=== PATIENT | male | born 1965 | race Two or more races ===

== ENCOUNTER 2019-01-13 18:44 | Emergency (ER) | payer BC, OTHER ==
[~2019-01-13] VITALS: Ht 175.3 cm; Wt 113.4 kg
[2019-01-13 20:05] VITALS: BP 122/86
[2019-01-13] MEDS ORDERED: TETANUS-DIPTH-ACEL PERTUSSIS 0.5ML SYRG IM ONE (21:15)
[2019-01-13] MEDS ORDERED: cefTRIAXone SOD 1,000 MG VL IM ONE (21:15)
[2019-01-13] MEDS ORDERED: cefTRIAXone 1GM/50ML D5W 50 ML IV ONE (21:45)
== END 2019-01-13 22:14 | disposition home or self-care (01) ==
LOC: ER 18:44 → EDBD 18:44 → ER 22:14
DX: S61.227A Laceration with foreign body of left little finger without damage to nail, initial encounter (principal); S40.012A Contusion of left shoulder, initial encounter; S00.03XA Contusion of scalp, initial encounter; Z90.49 Acquired absence of other specified parts of digestive tract; V43.52XA Car driver injured in collision with other type car in traffic accident, initial encounter; Y93.89 Activity, other specified; Y99.8 Other external cause status; Y92.410 Unspecified street and highway as the place of occurrence of the external cause
CPT/HCPCS: 12001; 70450; 71250; 73100; 73130; 74176; 90471; 90715; 96365; 99284; J0696